=== PATIENT | male | born 1970 | race Caucasian/White ===

== ENCOUNTER → 2021-01-20 | Outpatient (CLI) | payer OTHER | LOC: KOH-I 13:23 | DX: M47.816 Spondylosis without myelopathy or radiculopathy, lumbar region (principal) | CPT/HCPCS: 72110 ==

== ENCOUNTER → 2022-03-19 | Outpatient (CLI) | payer OTHER | LOC: KOH-I 10:38 | DX: M71.22 Synovial cyst of popliteal space [Baker], left knee (principal) | CPT/HCPCS: 73721 ==